=== PATIENT | female | born 1995 | race American Indian/Alaskan Native ===

== ENCOUNTER 2018-04-11 13:43 | Outpatient (CLI) | payer OTHER ==
[2018-04-12] MEDS ORDERED: NIFE60TA3 PO (08:15)
== END 2018-04-12 11:31 | disposition home or self-care (01) ==
LOC: OBS/DEL 13:43
DX: O26.893 Other specified pregnancy related conditions, third trimester (principal); M54.5 Low back pain; R10.2 Pelvic and perineal pain; Z34.03 Encounter for supervision of normal first pregnancy, third trimester

== ENCOUNTER 2018-04-24 02:53 | Inpatient (IN) | payer OTHER ==
[~2018-04-24] VITALS: Ht 165.1 cm; Wt 57.6 kg
[~2018-04-24 02:53] MED LIST: NIFE60TA3 PO
== END 2018-04-26 16:07 | DRG 780 ==
LOC: OBS/DEL 02:53 → OB/GYN 10:35 → LDR 10:35 → OB/GYN 04-25 10:40
PROC: BY4FZZZ Ultrasonography of Third Trimester, Single Fetus (ICD-10-PCS; principal; 2018-04-24)
PROC: 4A1HXCZ Monitoring of Products of Conception, Cardiac Rate, External Approach (ICD-10-PCS; 2018-04-24)
DX: O47.03 False labor before 37 completed weeks of gestation, third trimester (principal)

== ENCOUNTER 2018-05-05 04:05 | Inpatient (IN) | payer OTHER ==
[~2018-05-05] VITALS: Ht 165.1 cm; Wt 59.9 kg
[2018-05-05] MEDS ORDERED: PRENATAL 19 TA1 EAC1 PO (07:53)
== END 2018-05-07 13:31 | disposition home or self-care (01) | DRG 775 ==
LOC: LDR 04:05 → OB/GYN 15:18
PROC: 10E0XZZ Delivery of Products of Conception, External Approach (ICD-10-PCS; principal; 2018-05-05)
PROC: 0W8NXZZ Division of Female Perineum, External Approach (ICD-10-PCS; 2018-05-05)
PROC: 10907ZC Drainage of Amniotic Fluid, Therapeutic from Products of Conception, Via Natural or Artificial Opening (ICD-10-PCS; 2018-05-05)
PROC: 3E033VJ Introduction of Other Hormone into Peripheral Vein, Percutaneous Approach (ICD-10-PCS; 2018-05-05)
PROC: 4A1HXCZ Monitoring of Products of Conception, Cardiac Rate, External Approach (ICD-10-PCS; 2018-05-05)
DX: O60.14X0 Preterm labor third trimester with preterm delivery third trimester, not applicable or unspecified (principal); O69.81X0 Labor and delivery complicated by cord around neck, without compression, not applicable or unspecified; O99.824 Streptococcus B carrier state complicating childbirth; Z3A.36 36 weeks gestation of pregnancy; Z37.0 Single live birth

== ENCOUNTER → 2022-12-16 | Emergency (ER) | payer OTHER ==
[~2022-12-16] VITALS: Ht 167.6 cm; Wt 65.8 kg
[~2022-12-16] MED LIST changes: +MACROBID 100 M100 MG PO; +PRENATAL + DHA1 EAC1; +PRENATAL 19 TA1 EAC1 PO; +TERCONAZOLE45 GM VAG
== END | disposition home or self-care (01) ==
LOC: ER 10:20
DX: N39.0 Urinary tract infection, site not specified (principal); Z33.1 Pregnant state, incidental; Z20.822 Contact with and (suspected) exposure to COVID-19

== ENCOUNTER 2023-06-23 08:27 | Inpatient (IN) | payer OTHER ==
[~2023-06-23] VITALS: Ht 167.6 cm; Wt 73.9 kg
[2023-06-23] MEDS ORDERED: VALTREX1000 MG PO (09:00)
[2023-06-23] MEDS ORDERED: ERYTHROMYCIN250 M1 PO (09:02)
== END 2023-06-25 13:05 | disposition home or self-care (01) | DRG 807 ==
LOC: LDR 08:27 → OB/GYN 08:27
PROVIDERS: ADMIT Specialist; ATTEND Specialist
PROC: 10E0XZZ Delivery of Products of Conception, External Approach (ICD-10-PCS; principal; 2023-06-23)
PROC: 4A1HXCZ Monitoring of Products of Conception, Cardiac Rate, External Approach (ICD-10-PCS; 2023-06-23)
DX: O99.824 Streptococcus B carrier state complicating childbirth (principal); Z37.0 Single live birth; Z3A.37 37 weeks gestation of pregnancy; Z20.822 Contact with and (suspected) exposure to COVID-19